=== PATIENT | male | born 1975 | race Caucasian/White ===

== ENCOUNTER 2019-09-02 06:32 | Emergency (ER) | payer OTHER ==
[~2019-09-02] VITALS: Ht 175.3 cm; Wt 86.2 kg
[2019-09-02] MEDS ORDERED: AMOX-CLAV 875-1 EACH PO (07:21)
[2019-09-02] MEDS ORDERED: DOLOGEN CAPLET1 EACH PO (07:21)
== END 2019-09-02 07:51 | disposition home or self-care (01) ==
LOC: ER 06:32
DX: J03.90 Acute tonsillitis, unspecified (principal)